=== PATIENT | female | born 1950 | race Caucasian/White ===

== ENCOUNTER 2023-10-23 14:06 | Outpatient (RCR) | payer MEDICARE, OTHER, SELFPAY | END 2023-10-23 23:59 | disposition home or self-care (01) | LOC: RPT 14:06 | PROVIDERS: ATTENDING PHYSICIAN Psychiatry & Neurology Neurology; FAMILY PHYSICIAN Internal Medicine | DX: G62.0 Drug-induced polyneuropathy (principal); Z73.6 Limitation of activities due to disability; R26.9 Unspecified abnormalities of gait and mobility | CPT/HCPCS: 97112; 97116; 97162; 97530 ==

== ENCOUNTER 2023-11-21 10:14 | Outpatient (RCR) | payer MEDICARE, OTHER, SELFPAY | END 2023-11-21 23:59 | disposition home or self-care (01) | LOC: RPT 10:14 | PROVIDERS: ATTENDING PHYSICIAN Psychiatry & Neurology Neurology; FAMILY PHYSICIAN Internal Medicine | DX: G62.0 Drug-induced polyneuropathy (principal); R26.9 Unspecified abnormalities of gait and mobility; Z73.6 Limitation of activities due to disability | CPT/HCPCS: 97112 ==

== ENCOUNTER → 2023-12-15 08:49 | Outpatient (REF) | payer MEDICARE, OTHER, SELFPAY | LOC: WDC 08:49 | PROVIDERS: ATTENDING PHYSICIAN Internal Medicine Hematology & Oncology; FAMILY PHYSICIAN Internal Medicine | DX: Z12.31 Encounter for screening mammogram for malignant neoplasm of breast (principal); C50.912 Malignant neoplasm of unspecified site of left female breast | CPT/HCPCS: 77063; 77067 ==

== ENCOUNTER 2023-12-18 13:59 | Outpatient (RCR) | payer MEDICARE, OTHER, SELFPAY | END 2023-12-18 15:09 | disposition home or self-care (01) | LOC: RPT 13:59 | PROVIDERS: ATTENDING PHYSICIAN Psychiatry & Neurology Neurology; FAMILY PHYSICIAN Internal Medicine | DX: G62.0 Drug-induced polyneuropathy (principal); Z73.6 Limitation of activities due to disability; R26.9 Unspecified abnormalities of gait and mobility; M62.81 Muscle weakness (generalized); R29.6 Repeated falls | CPT/HCPCS: 97112; 97116 ==

== ENCOUNTER 2024-02-20 13:51 | Emergency (ER) | payer MEDICARE, OTHER, SELFPAY ==
[2024-02-20 14:05] VITALS: BP 128/79
[2024-02-20 14:43] LABS: % Basophils 0.9 % (0-2); % Eosinophils 1.2 % (0-6); % Immature Granulocytes 0.5 % (0-0.5); % Lymphocytes 21.5 % (20.5-51.1); % Monocytes 6.6 % (1.7-9.3); % Neutrophils 69.3 % (42.2-75.2); Absolute Basophils 0.1 10^3/uL (0-0.2); Absolute Eosinophils 0.1 10^3/uL (0-0.7); Absolute Lymphocytes 1.4 10^3/uL (1.2-3.4); Absolute Monocytes 0.4 10^3/uL (0.1-0.6); Absolute Neutrophils 4.5 10^3/uL (1.4-6.5); Hematocrit 41.8 % (37.0-47.0); Hemoglobin 14.8 g/dL (12.0-16.0); Mean Corp Hgb Conc. 35.4 g/dL (33.0-37.0); Mean Corpuscular Hgb 31.2 pg (27.0-31.0); Mean Platelet Volume 9.5 fL (7.4-10.4); Nucleated Red Blood Cells % 0 %; Platelet Count 229 10^3/uL (130-400); Red Blood Cell Count 4.75 10^6/uL (4.20-5.40); Red Cell Dist. Width 12.3 % (11.5-14.5); White Blood Cell Count 6.5 10^3/uL (4.8-10.8)
[2024-02-20 14:56] LABS: ALT (SGPT) 20 U/L (0-35); AST (SGOT) 26 U/L (14-36); Albumin 4.2 g/dl (3.5-5.0); Alkaline Phosphatase 76 U/L (38-126); Blood Urea Nitrogen 17 mg/dl (7-17); Calcium 9.4 mg/dl (8.4-10.2); Carbon Dioxide 28 mmol/L (22-30); Chloride 102 mmol/L (98-107); Glucose 145 mg/dl (70-99); Potassium 4.4 mmol/L (3.5-5.1); Sodium 137 mmol/L (135-145); Total Bilirubin 0.4 mg/dl (0.2-1.3); Total Protein 6.5 g/dl (6.3-8.2); eGFR > 60.00
[2024-02-20 15:05] LABS: Troponin I < 0.012 ng/ml
[2024-02-20 16:27] VITALS: BP 143/75
[2024-02-20 17:00] VITALS: BP 107/54
[2024-02-20 18:00] VITALS: BP 105/59
--- NOTE | 2024-02-20 18:02 | ED.GENMED ---
History of Present Illness
General
Chief Complaint: Fall
Source: patient
Exam Limitations: none
Time Seen by Provider: 02/20/24 16:18
Travel History
Have you had any contact with someone who has COVID-19?: No
Do you have any symptoms of coronavirus? Fever > 100 degrees, chills, cough, shortness of breath, sore throat, loss of taste or smell, muscle aches, or headache?: No
History of Present Illness
History of Present Illness:
73-year-old female presents after a fall. She states she was dizzy before she fell. She has been dizzy for quite some time and has been seeing neurology for this. The dizziness may be from her carbamazepine she is taking for her neuralgia in her
face. The dizziness is not new. She fell and hit the back of her head as well as the right ribs right hand and lower back. She is not anticoagulated. She denies chest pain. No abdominal pain. No other complaints at this time
Past History
Past History
ED Past Medical History: Cancer (Breast), Fibromyalgia, GERD and Other (Neuropathy, fibromyalgia)
ED Past Surgical History: Appendectomy, Gynecological and Other (Keratoma removal appendix removal hysterectomy )
Social History
Tobacco: Non-smoker
Alcohol: None
Drug: None
Personal:
Living: with family
Employment: Employed
Family History
Family History: Hypertension
Phy Exam
Physical Exam
Physical Exam:
General: Well-appearing female no acute respiratory distress
HEENT: Normocephalic pupils equal round reactive to light no scalp abrasion or hematoma
Heart: Regular rate and rhythm no murmurs
Lungs: Clear no wheeze or rales
Extremities: No cyanosis
musculoskeletal exam: Spine is mildly tender of the lumbar spine. She is tender over the right hand with overlying ecchymosis. No deformities.
Extremities: No cyanosis
Course
Orders/Labs/Results
Orders:
Orders
02/20/24 14:07
Electrocardiogram (*1) Urgent
Reason for Study: Shortness of Breath
EKG- Treatment ONCE
02/20/24 14:08
CT Head W/o Iv Contrast Urgent
Comment:
Reason For Exam: head injury, dizziness
02/20/24 14:13
Complete Blood Count/With Diff Urgent
Comprehensive Metabolic Panel Urgent
Troponin I Urgent
02/20/24 16:45
CR Hand - Right Min 3 Views Urgent
Comment:
Reason For Exam: fall
CR Lumbar Spine 2 Or 3 Views Urgent
Comment:
Reason For Exam: fall
CR Ribs-right 3 Vw W/pa Chest* Urgent
Comment:
Reason For Exam: fall
Abnormal Lab Results
02/20/24
14:13
MCH 31.2 H pg
(27.0-31.0)
Glucose 145 H mg/dl
(70-99)
02/20/24 14:13
02/20/24 14:13
Vital Signs
Initial and Last Documented VS:
Initial Vital Signs
Pulse Resp BP Pulse Ox
118 19 128/79 98
02/20/24 14:05 02/20/24 14:05 02/20/24 14:05 02/20/24 14:05
Last Documented Vital Signs
Pulse Resp BP Pulse Ox
88 14 105/59 98
02/20/24 18:30 02/20/24 18:30 02/20/24 18:00 02/20/24 18:30
MDM/Problems Addressed
Differential Diagnosis Includes:
Fall. Head injury. Labs reviewed through triage which are without significant finding. She has been seeing neurology for dizziness which is thought to be related to her carbamazepine. Her dizziness is not new.
*Critical Care Note
Total Time (30-74mins, 75-104mins- exclusive of procedures): Not Applicable
Update Note
Update Note:
CT of the head negative. X-ray right hand right ribs and lumbar spine all negative for acute fractures. Patient reassured. She has been ambulatory here without any difficulty. She is taken herself to the bathroom several times.
ED Attending Note
-
Portions of this chart may have been created with voice recognition software.� Occasional wrong word or��sound alike� substitutions may have occurred due to the inherent limitations of voice recognition software.
Discharge Plan
Departure
Patient Disposition: Home (Routine Discharge)
Date of Disposition: 02/20/24
Time of Disposition: 18:54
Patient with high blood pressure during this ER visit?: No
Discharge Problem:
Fall
Instructions: Preventing falls in adults
Prescriptions:
No Action
gabapentin 300 MG capsule
300 mg PO QID
zolpidem 5 MG tablet
5 mg PO HS PRN (Reason: insomnia)
duloxetine 30 MG capsule,delayed release(DR/EC)
60 mg PO DAILY
alpha lipoic acid 300 MG capsule
300 mg PO BID
valacyclovir 1,000 MG tablet
1,000 mg PO TID Qty: 42 0RF
prednisone 20 MG tablet
20 mg PO BID Qty: 14 0RF
oxycodone 5 MG tablet
5 mg PO Q4HPRN PRN (Reason: pain) Qty: 20 0RF
Referrals:
Oly Batres MD [Family Provider] -
Activity Restrictions/Additional Instructions:
Rest. Use Tylenol as needed for pain peer return if worse otherwise follow-up with family doctor and your neurologist as discussed
Interventions
Interventions:
*Risk Screen - Suicide Last Done: 02/20/24 18:06
*General Assessment Last Done: 02/20/24 18:06
*Neglect/Abuse Screening Last Done: 02/20/24 18:06
ED- Fall Risk Assessment Last Done: 02/20/24 18:06
*ED COVID-19 Vaccine History Last Done: 02/20/24 18:06
ED-Musculoskeletal Assessment Last Done: 02/20/24 16:32
ED- Neurological Assessment Last Done: 02/20/24 16:32
ED-Skin Assessment Last Done: 02/20/24 16:32
Discharge Date and Time
Print Language: KYRGYZ
[2024-02-20 19:18] VITALS: BP 127/51
== END 2024-02-20 19:20 | disposition home or self-care (01) ==
LOC: EMR 13:51
PROVIDERS: Emergency Medicine; EMERGENCY PHYSICIAN Emergency Medicine; FAMILY PHYSICIAN Internal Medicine
DX: R42 Dizziness and giddiness (principal); S60.221A Contusion of right hand, initial encounter; S09.90XA Unspecified injury of head, initial encounter; S29.9XXA Unspecified injury of thorax, initial encounter; M54.50 Low back pain, unspecified; W19.XXXA Unspecified fall, initial encounter; G58.8 Other specified mononeuropathies; M79.7 Fibromyalgia; K21.9 Gastro-esophageal reflux disease without esophagitis; Z91.040 Latex allergy status; Z91.048 Other nonmedicinal substance allergy status
CPT/HCPCS: 99284; 70450; 71101; 72100; 73130; 80053; 84484; 85025; 93005

== ENCOUNTER → 2024-05-03 07:33 | Outpatient (REF) | payer MEDICARE, OTHER, SELFPAY ==
[2024-05-03 08:43] LABS: % Basophils 0.8 % (0-2); % Eosinophils 2.5 % (0-6); % Immature Granulocytes 0.4 % (0-0.5); % Lymphocytes 19.9 % (20.5-51.1); % Monocytes 7.5 % (1.7-9.3); % Neutrophils 68.9 % (42.2-75.2); Absolute Eosinophils 0.1 10^3/uL (0-0.7); Absolute Monocytes 0.4 10^3/uL (0.1-0.6); Absolute Neutrophils 3.6 10^3/uL (1.4-6.5); Hematocrit 44.1 % (37.0-47.0); Hemoglobin 15.4 g/dL (12.0-16.0); Mean Corp Hgb Conc. 34.9 g/dL (33.0-37.0); Mean Corpuscular Hgb 32.3 pg (27.0-31.0); Mean Corpuscular Volume 92.5 fL (81.0-99.0); Mean Platelet Volume 9.4 fL (7.4-10.4); Nucleated Red Blood Cells % 0 %; Platelet Count 225 10^3/uL (130-400); Red Blood Cell Count 4.77 10^6/uL (4.20-5.40); Red Cell Dist. Width 12.6 % (11.5-14.5); White Blood Cell Count 5.2 10^3/uL (4.8-10.8)
[2024-05-03 09:16] LABS: ALT (SGPT) 17 U/L (0-35); AST (SGOT) 25 U/L (14-36); Albumin 4.1 g/dl (3.5-5.0); Alkaline Phosphatase 68 U/L (38-126); Blood Urea Nitrogen 19 mg/dl (7-17); Calcium 9.4 mg/dl (8.4-10.2); Carbon Dioxide 31 mmol/L (22-30); Chloride 103 mmol/L (98-107); Glucose 96 mg/dl (70-99); Potassium 4.5 mmol/L (3.5-5.1); Sodium 138 mmol/L (135-145); Total Bilirubin 0.6 mg/dl (0.2-1.3); Total Cholesterol 274 mg/dl (50-199); Total Protein 6.2 g/dl (6.3-8.2); Triglyceride 67 mg/dl (10-149); Very Low Density Lipoprotein 13 mg/dl (0-30); eGFR > 60.00
[2024-05-03 09:26] LABS: HDL Cholesterol 132 mg/dl; LDL Cholesterol, Calculated 129 mg/dl
[2024-05-03 09:38] LABS: TSH 3.54 uIU/ml (0.47-4.68)
[2024-05-03 09:57] LABS: Vitamin B12 335 pg/ml (239-931)
== END ==
LOC: REG 07:33
PROVIDERS: ATTENDING PHYSICIAN Nurse Practitioner Family; FAMILY PHYSICIAN Internal Medicine
DX: E53.8 Deficiency of other specified B group vitamins (principal); G50.0 Trigeminal neuralgia; C50.212 Malignant neoplasm of upper-inner quadrant of left female breast; R53.83 Other fatigue; R63.4 Abnormal weight loss; E78.5 Hyperlipidemia, unspecified; Z00.00 Encounter for general adult medical examination without abnormal findings
CPT/HCPCS: 36415; 80053; 80061; 82607; 84443; 85025

== ENCOUNTER → 2024-05-09 06:42 | Day surgery (SDC) | payer MEDICARE, OTHER, SELFPAY | LOC: GI 06:42 | PROVIDERS: ATTENDING PHYSICIAN Internal Medicine Gastroenterology; FAMILY PHYSICIAN Internal Medicine | DX: Z12.11 Encounter for screening for malignant neoplasm of colon (principal); K57.30 Diverticulosis of large intestine without perforation or abscess without bleeding; K62.1 Rectal polyp; D12.3 Benign neoplasm of transverse colon | CPT/HCPCS: 45385; 45380; 88305 ==

== ENCOUNTER → 2024-06-12 18:09 | Outpatient (REF) | payer MEDICARE, OTHER, SELFPAY ==
[2024-06-12 20:58] LABS: Urine Red Blood Cell 0-2 /HPF (0-2); Urine Squamous Cell 0-2 /LPF (Few); Urine White Cell 0-2 /HPF (0-5)
[2024-06-12 20:59] LABS: Urine Bacteria Few (Negative)
== END ==
LOC: CLAB 18:09
PROVIDERS: ATTENDING PHYSICIAN Urology
DX: N39.0 Urinary tract infection, site not specified (principal)
CPT/HCPCS: 81015; 87086

== ENCOUNTER 2024-07-24 13:43 | Outpatient (RCR) | payer MEDICARE, OTHER, SELFPAY | END 2024-07-24 23:59 | disposition home or self-care (01) | LOC: RPT 13:43 | PROVIDERS: ATTENDING PHYSICIAN Urology; FAMILY PHYSICIAN Internal Medicine | DX: N39.0 Urinary tract infection, site not specified (principal); N32.81 Overactive bladder; M62.89 Other specified disorders of muscle; N39.41 Urge incontinence; Z73.6 Limitation of activities due to disability; R26.81 Unsteadiness on feet; M62.81 Muscle weakness (generalized) | CPT/HCPCS: 97110; 97163; 97530 ==

== ENCOUNTER 2024-08-07 11:00 | Outpatient (RCR) | payer MEDICARE, OTHER, SELFPAY | END 2024-08-07 23:59 | disposition home or self-care (01) | LOC: RPT 11:00 | PROVIDERS: ATTENDING PHYSICIAN Urology; FAMILY PHYSICIAN Internal Medicine | DX: N32.81 Overactive bladder (principal); M62.89 Other specified disorders of muscle; Z73.6 Limitation of activities due to disability; M62.81 Muscle weakness (generalized); R26.81 Unsteadiness on feet; Z87.440 Personal history of urinary (tract) infections; Z85.3 Personal history of malignant neoplasm of breast | CPT/HCPCS: 97110; 97112; 97140; 97530 ==

== ENCOUNTER → 2024-08-29 11:21 | Outpatient (REF) | payer MEDICARE, OTHER, SELFPAY ==
[2024-08-29 12:28] LABS: % Basophils 0.6 % (0-2); % Immature Granulocytes 0.4 % (0-0.5); % Lymphocytes 16.1 % (20.5-51.1); % Monocytes 5.2 % (1.7-9.3); % Neutrophils 76.7 % (42.2-75.2); Absolute Eosinophils 0.1 10^3/uL (0-0.7); Absolute Lymphocytes 1.1 10^3/uL (1.2-3.4); Absolute Monocytes 0.4 10^3/uL (0.1-0.6); Absolute Neutrophils 5.2 10^3/uL (1.4-6.5); Hematocrit 45.3 % (37.0-47.0); Hemoglobin 15.4 g/dL (12.0-16.0); Mean Corpuscular Hgb 31.5 pg (27.0-31.0); Mean Corpuscular Volume 92.6 fL (81.0-99.0); Mean Platelet Volume 9.4 fL (7.4-10.4); Nucleated Red Blood Cells % 0 %; Platelet Count 235 10^3/uL (130-400); Red Blood Cell Count 4.89 10^6/uL (4.20-5.40); Red Cell Dist. Width 12.5 % (11.5-14.5); White Blood Cell Count 6.7 10^3/uL (4.8-10.8)
[2024-08-29 13:25] LABS: TSH 1.63 uIU/ml (0.47-4.68)
[2024-08-29 14:00] LABS: Vitamin B12 934 pg/ml (239-931)
[2024-08-29 16:23] LABS: ALT (SGPT) 19 U/L (0-35); AST (SGOT) 28 U/L (14-36); Albumin 4.6 g/dl (3.5-5.0); Alkaline Phosphatase 62 U/L (38-126); Blood Urea Nitrogen 21 mg/dl (7-17); Calcium 9.7 mg/dl (8.4-10.2); Carbon Dioxide 27 mmol/L (22-30); Chloride 100 mmol/L (98-107); Glucose 99 mg/dl (70-99); Potassium 4.8 mmol/L (3.5-5.1); Sodium 138 mmol/L (135-145); Total Bilirubin 0.4 mg/dl (0.2-1.3); eGFR > 60.00
== END ==
LOC: REG 11:21
PROVIDERS: ATTENDING PHYSICIAN Psychiatry & Neurology Neurology; FAMILY PHYSICIAN Internal Medicine
DX: G50.0 Trigeminal neuralgia (principal); I10 Essential (primary) hypertension; D52.9 Folate deficiency anemia, unspecified
CPT/HCPCS: 36415; 80053; 82607; 82746; 84443; 85025

== ENCOUNTER 2024-09-11 12:44 | Outpatient (RCR) | payer MEDICARE, OTHER, SELFPAY | END 2024-09-11 23:59 | disposition home or self-care (01) | LOC: RPT 12:44 | PROVIDERS: ATTENDING PHYSICIAN Urology; FAMILY PHYSICIAN Internal Medicine | DX: N32.81 Overactive bladder (principal); M62.89 Other specified disorders of muscle; Z73.6 Limitation of activities due to disability; M62.81 Muscle weakness (generalized); R26.81 Unsteadiness on feet; Z87.440 Personal history of urinary (tract) infections; Z85.3 Personal history of malignant neoplasm of breast | CPT/HCPCS: 97014; 97112; 97140; 97530 ==

== ENCOUNTER 2024-10-23 12:19 | Outpatient (RCR) | payer MEDICARE, OTHER, SELFPAY | END 2024-10-23 23:59 | disposition home or self-care (01) | LOC: RPT 12:19 | PROVIDERS: ATTENDING PHYSICIAN Urology; FAMILY PHYSICIAN Internal Medicine | DX: N32.81 Overactive bladder (principal); M62.89 Other specified disorders of muscle; N39.0 Urinary tract infection, site not specified; Z73.6 Limitation of activities due to disability; N39.41 Urge incontinence; M62.81 Muscle weakness (generalized); R26.81 Unsteadiness on feet; Z87.440 Personal history of urinary (tract) infections; Z85.3 Personal history of malignant neoplasm of breast | CPT/HCPCS: 97014; 97112; 97140; 97530 ==

== ENCOUNTER 2024-11-20 12:43 | Outpatient (RCR) | payer MEDICARE, OTHER, SELFPAY | END 2024-11-20 23:59 | disposition home or self-care (01) | LOC: RPT 12:43 | PROVIDERS: ATTENDING PHYSICIAN Urology; FAMILY PHYSICIAN Internal Medicine | DX: N32.81 Overactive bladder (principal); M62.89 Other specified disorders of muscle; N39.0 Urinary tract infection, site not specified; N39.41 Urge incontinence; Z73.6 Limitation of activities due to disability; M62.81 Muscle weakness (generalized); R26.81 Unsteadiness on feet; Z87.440 Personal history of urinary (tract) infections; R53.83 Other fatigue; Z85.3 Personal history of malignant neoplasm of breast | CPT/HCPCS: 97014; 97110; 97112; 97140; 97530 ==

== ENCOUNTER → 2024-12-17 17:34 | Outpatient (REF) | payer MEDICARE, OTHER, SELFPAY | LOC: WDC 17:34 | PROVIDERS: ATTENDING PHYSICIAN Internal Medicine Hematology & Oncology; FAMILY PHYSICIAN Internal Medicine | DX: Z12.31 Encounter for screening mammogram for malignant neoplasm of breast (principal) | CPT/HCPCS: 77063; 77067 ==

== ENCOUNTER 2024-12-18 12:58 | Outpatient (RCR) | payer MEDICARE, OTHER, SELFPAY | END 2024-12-18 23:59 | disposition home or self-care (01) | LOC: RPT 12:58 | PROVIDERS: ATTENDING PHYSICIAN Urology; FAMILY PHYSICIAN Internal Medicine | DX: N32.81 Overactive bladder (principal); M62.89 Other specified disorders of muscle; N39.0 Urinary tract infection, site not specified; N39.41 Urge incontinence; Z73.6 Limitation of activities due to disability; M62.81 Muscle weakness (generalized); R26.81 Unsteadiness on feet; Z87.440 Personal history of urinary (tract) infections; Z85.3 Personal history of malignant neoplasm of breast; R53.83 Other fatigue | CPT/HCPCS: 97014; 97110; 97112; 97530 ==

== ENCOUNTER 2025-01-01 13:30 | Outpatient (RCR) | payer MEDICARE, OTHER, SELFPAY | END 2025-01-02 07:21 | disposition home or self-care (01) | LOC: RPT 13:30 | PROVIDERS: ATTENDING PHYSICIAN Urology; FAMILY PHYSICIAN Internal Medicine | DX: N32.81 Overactive bladder (principal); M62.89 Other specified disorders of muscle; N39.0 Urinary tract infection, site not specified; N39.41 Urge incontinence; Z73.6 Limitation of activities due to disability; M62.81 Muscle weakness (generalized); R26.81 Unsteadiness on feet; Z87.440 Personal history of urinary (tract) infections; Z85.3 Personal history of malignant neoplasm of breast; R53.83 Other fatigue | CPT/HCPCS: 97140; 97530 ==

== ENCOUNTER → 2025-01-06 09:45 | Outpatient (REF) | payer MEDICARE, OTHER, SELFPAY ==
[2025-01-06 10:51] LABS: % Basophils 0.7 % (0-2); % Lymphocytes 16.6 % (20.5-51.1); % Monocytes 6.1 % (1.7-9.3); % Neutrophils 73.6 % (42.2-75.2); Absolute Eosinophils 0.1 10^3/uL (0-0.7); Absolute Immature Granulocytes 0.1 10^3/uL (0-0.05); Absolute Monocytes 0.4 10^3/uL (0.1-0.6); Absolute Neutrophils 4.4 10^3/uL (1.4-6.5); Hematocrit 44.4 % (37.0-47.0); Hemoglobin 15.5 g/dL (12.0-16.0); Mean Corp Hgb Conc. 34.9 g/dL (33.0-37.0); Mean Corpuscular Hgb 31.4 pg (27.0-31.0); Mean Corpuscular Volume 90.1 fL (81.0-99.0); Mean Platelet Volume 9.3 fL (7.4-10.4); Nucleated Red Blood Cells % 0 %; Platelet Count 246 10^3/uL (130-400); Red Blood Cell Count 4.93 10^6/uL (4.20-5.40); Red Cell Dist. Width 12.5 % (11.5-14.5)
[2025-01-06 14:54] LABS: ALT (SGPT) 21 U/L (0-35); AST (SGOT) 27 U/L (14-36); Albumin 4.5 g/dl (3.5-5.0); Alkaline Phosphatase 76 U/L (38-126); Blood Urea Nitrogen 14 mg/dl (7-17); Calcium 9.2 mg/dl (8.4-10.2); Carbon Dioxide 28 mmol/L (22-30); Chloride 101 mmol/L (98-107); Glucose 109 mg/dl (70-99); Potassium 5.1 mmol/L (3.5-5.1); Sodium 138 mmol/L (135-145); Total Bilirubin 0.6 mg/dl (0.2-1.3); Total Cholesterol 229 mg/dl (50-199); Total Protein 6.7 g/dl (6.3-8.2); Triglyceride 62 mg/dl (10-149); Very Low Density Lipoprotein 12 mg/dl (0-30); eGFR > 60.00
[2025-01-06 15:48] LABS: HDL Cholesterol 131 mg/dl; LDL Cholesterol, Calculated 86 mg/dl
== END ==
LOC: REG 09:45
PROVIDERS: ATTENDING PHYSICIAN Nurse Practitioner Family; FAMILY PHYSICIAN Internal Medicine
DX: E78.5 Hyperlipidemia, unspecified (principal); G50.0 Trigeminal neuralgia; I63.81 Other cerebral infarction due to occlusion or stenosis of small artery
CPT/HCPCS: 36415; 80053; 80061; 85025

== ENCOUNTER → 2025-01-07 15:34 | Outpatient (REF) | payer MEDICARE, OTHER, SELFPAY | LOC: RAD 15:34 | PROVIDERS: ATTENDING PHYSICIAN Internal Medicine | DX: I63.81 Other cerebral infarction due to occlusion or stenosis of small artery (principal) | CPT/HCPCS: 93880 ==

== ENCOUNTER 2025-01-21 06:12 | Outpatient (RCR) | payer MEDICARE, OTHER, SELFPAY | END 2025-01-21 23:59 | disposition home or self-care (01) | LOC: ROT 06:12 | PROVIDERS: ATTENDING PHYSICIAN Nurse Practitioner Family; FAMILY PHYSICIAN Internal Medicine | DX: R26.89 Other abnormalities of gait and mobility (principal); R42 Dizziness and giddiness; Z73.6 Limitation of activities due to disability; R41.844 Frontal lobe and executive function deficit; R41.842 Visuospatial deficit; M62.81 Muscle weakness (generalized); G62.0 Drug-induced polyneuropathy; Z86.73 Personal history of transient ischemic attack (TIA), and cerebral infarction without residual deficits; Z85.3 Personal history of malignant neoplasm of breast; Z91.81 History of falling; R29.6 Repeated falls | CPT/HCPCS: 96125; 97163; 97167; 97530; 97535 ==

== ENCOUNTER → 2025-02-20 12:59 | Outpatient (REF) | payer MEDICARE, OTHER, SELFPAY | LOC: PAVMRI 12:59 | PROVIDERS: ATTENDING PHYSICIAN Nurse Practitioner Family; FAMILY PHYSICIAN Internal Medicine | DX: R26.89 Other abnormalities of gait and mobility (principal); M62.81 Muscle weakness (generalized); C50.212 Malignant neoplasm of upper-inner quadrant of left female breast; Z17.0 Estrogen receptor positive status [ER+] | CPT/HCPCS: 70553; A9575 ==

== ENCOUNTER 2025-02-21 08:02 | Outpatient (RCR) | payer MEDICARE, OTHER, SELFPAY | END 2025-02-21 23:59 | disposition home or self-care (01) | LOC: ROT 08:02 | PROVIDERS: ATTENDING PHYSICIAN Nurse Practitioner Family; FAMILY PHYSICIAN Internal Medicine | DX: R26.89 Other abnormalities of gait and mobility (principal); R29.6 Repeated falls; Z73.6 Limitation of activities due to disability; R42 Dizziness and giddiness; R53.0 Neoplastic (malignant) related fatigue; G62.0 Drug-induced polyneuropathy; T45.1X5D Adverse effect of antineoplastic and immunosuppressive drugs, subsequent encounter; R29.3 Abnormal posture; M62.81 Muscle weakness (generalized); G31.84 Mild cognitive impairment of uncertain or unknown etiology; R41.840 Attention and concentration deficit; R41.841 Cognitive communication deficit; Z86.73 Personal history of transient ischemic attack (TIA), and cerebral infarction without residual deficits | CPT/HCPCS: 97110; 97112; 97116; 97129; 97130; 97530; 97535 ==

== ENCOUNTER 2025-03-10 09:01 | Emergency (ER) | payer MEDICARE, OTHER, SELFPAY ==
[2025-03-10 09:02] VITALS: BP 150/84
--- NOTE | 2025-03-10 09:19 | ED.GENMED ---
History of Present Illness
General
Chief Complaint: Back Pain
Source: patient
Exam Limitations: none
Time Seen by Provider: 03/10/25 09:18
Nursing documentation reviewed up to this point in time: agreed with
History of Present Illness
History of Present Illness:
74 yo female w h/o sciatica, neuropathy, GERD breast CA w lumpectomy, hysterectomy, appendectomy presents for 9/10 mid upper back pain after fall 7:30 a.m. getting out of shower, struck back of head on shower wall, fell 1/[address] out of shower
striking mid back on the metal strip where the shower door slides. Denies LOC, neck pain. Head hurts where it hit, no significant headache.
Past History
Past History
ED Past Medical History: Cancer (Breast), CVA, Fibromyalgia, GERD, Other (Neuropathy, fibromyalgia, balance problems, trigeminal neuralgia) and Other
ED Past Surgical History: Appendectomy, Gynecological and Other (Keratoma removal appendix removal hysterectomy )
Social History
Tobacco: Non-smoker
Alcohol: Occasional
Drug: None
Personal:
Living: alone
Employment: Retired
Family History
Family History: Hypertension
Review of Systems
Review of Systems
Allergies reviewed?: Yes
All Other Systems: ROS reviewed and negative except as documented in HPI and ROS
Respiratory: Denies trouble breathing
Cardiac: Denies chest pain or syncope
ABD/GI: Denies abdominal pain, nausea or vomiting
: Denies incontinence
Musculoskeletal: Reports back pain; Denies neck pain
Skin: Reports no symptoms
Neurological: Reports no symptoms
Phy Exam
Physical Exam
Physical Exam:
GENERAL: No acute distress. A&Ox3.
CONSTITUTIONAL: Afebrile.
Head: NC/AT
EYES: clear, conjunctivae normal
ENMT: moist mucus membranes, Pharynx nl
RESPIRATORY: Regular respirations, nonlabored, lungs clear.
CARDIOVASCULAR: Regular rate and rhythm, no murmurs, no rubs.
GI: Soft, nontender, normal BS
MUSCULOSKELETAL: Tender, mildly erythematous and mildly swollen min back at bra line. Moves slowly due to back pain but steady ambulation. Well perfused.
SKIN: Warm, dry, pink
PSYCH: Normal mood and affect. Well kept, interactive and appropriate
NEUROLOGIC: Awake, alert and oriented. No focal neurological deficits
Course
Orders/Labs/Results
Orders:
Orders
03/10/25 09:28
Ibuprofen [Motrin] 600 mg PO NOW STA
CR Thoracic Spine 3 Views Urgent
Reason For Exam: direct impact mid T spine on metal strip of shower
Vital Signs
Initial and Last Documented VS:
Initial Vital Signs
Temp Pulse Resp BP Pulse Ox
98.5 F 128 18 150/84 100
03/10/25 09:02 03/10/25 09:02 03/10/25 09:02 03/10/25 09:02 03/10/25 09:02
Last Documented Vital Signs
Temp Pulse Resp BP Pulse Ox
98.5 F 128 18 150/84 100
03/10/25 09:02 03/10/25 09:02 03/10/25 09:02 03/10/25 09:02 03/10/25 09:02
MDM/Problems Addressed
Differential Diagnosis Includes:
contusion back, fracture T spine, concussion,
MDM/Problems Addressed:
74 yo female w h/o sciatica, neuropathy, GERD breast CA w lumpectomy, hysterectomy, appendectomy presents for 9/10 mid upper back pain after fall 7:30 a.m. getting out of shower, struck back of head on shower wall, fell 1/[address] out of shower
striking mid back on the metal strip where the shower door slides. Denies LOC, neck pain. Head hurts where it hit, no significant headache.
Thoracic spine x-ray radiology report read: No acute fracture or malalignment identified.
Patient informed and is much relieved, she states she is feeling somewhat better after the ibuprofen. She is out of bed and moving around well
No sign of concussion or significant head injury
HR 90, Pulse ox 98% RA at discharge
Pt ambulated out with normal gait at discharge
Very appreciative of the care
*Critical Care Note
Total Time (30-74mins, 75-104mins- exclusive of procedures): Not Applicable
ED Attending Note
-
Portions of this chart may have been created with voice recognition software.� Occasional wrong word or��sound alike� substitutions may have occurred due to the inherent limitations of voice recognition software.
Discharge Plan
Departure
Patient Disposition: Home (Routine Discharge)
Date of Disposition: 03/10/25
Time of Disposition: 10:48
Patient with high blood pressure during this ER visit?: No
Condition: Good
Discharge Problem:
Fall from slip, trip, or stumble, Minor head injury without loss of consciousness, Contusion of thoracic spine
Instructions: Head injury in adults, Contusion
Prescriptions:
No Action
gabapentin 300 MG capsule
300 mg PO QID
zolpidem 5 MG tablet
5 mg PO HS PRN (Reason: insomnia)
duloxetine 30 MG capsule,delayed release(DR/EC)
60 mg PO DAILY
alpha lipoic acid 300 MG capsule
300 mg PO BID
valacyclovir 1,000 MG tablet
1,000 mg PO TID Qty: 42 0RF
prednisone 20 MG tablet
20 mg PO BID Qty: 14 0RF
oxycodone 5 MG tablet
5 mg PO Q4HPRN PRN (Reason: pain) Qty: 20 0RF
Referrals:
Oly Batres MD [Family Provider, Internal Medicine] - As needed
Activity Restrictions/Additional Instructions:
As we discussed, your x-ray shows no fractures.
Ibuprofen 600 mg, with food, every 6 hours as needed for pain.
You may alternate heating pad with cold compresses for 20 minutes and stick with whichever feels better.
Interventions
Interventions:
*Risk Screen - Suicide Last Done: 03/10/25 09:02
*General Assessment Last Done: 03/10/25 09:02
*Neglect/Abuse Screening Last Done: 03/10/25 09:02
*Nursing Disposition Last Done: 03/10/25 11:10
ED-Musculoskeletal Assessment Last Done: 03/10/25 10:02
Discharge Date and Time
Discharge Date/Time: 03/10/25 11:10
Print Language: FRISIAN
[2025-03-10] MEDS: MOTRIN 600 MG PO (09:39)
== END 2025-03-10 11:10 | disposition home or self-care (01) ==
LOC: EMR 09:01
PROVIDERS: EMERGENCY PHYSICIAN Emergency Medicine; FAMILY PHYSICIAN Internal Medicine
DX: S20.224A Contusion of middle back wall of thorax, initial encounter (principal); S09.90XA Unspecified injury of head, initial encounter; W01.0XXA Fall on same level from slipping, tripping and stumbling without subsequent striking against object, initial encounter; M79.7 Fibromyalgia; Z85.3 Personal history of malignant neoplasm of breast; Z86.73 Personal history of transient ischemic attack (TIA), and cerebral infarction without residual deficits; Z90.49 Acquired absence of other specified parts of digestive tract; Z90.710 Acquired absence of both cervix and uterus
CPT/HCPCS: 99283; 72072

== ENCOUNTER 2025-03-17 09:34 | Outpatient (RCR) | payer MEDICARE, OTHER, SELFPAY | END 2025-03-17 23:59 | disposition home or self-care (01) | LOC: ROT 09:34 | PROVIDERS: ATTENDING PHYSICIAN Nurse Practitioner Family; FAMILY PHYSICIAN Internal Medicine | DX: R42 Dizziness and giddiness; Z73.6 Limitation of activities due to disability; R53.0 Neoplastic (malignant) related fatigue; G62.0 Drug-induced polyneuropathy; R26.89 Other abnormalities of gait and mobility; T45.1X5D Adverse effect of antineoplastic and immunosuppressive drugs, subsequent encounter; M62.81 Muscle weakness (generalized); R29.3 Abnormal posture; G31.84 Mild cognitive impairment of uncertain or unknown etiology; R41.840 Attention and concentration deficit; R41.841 Cognitive communication deficit; Z86.73 Personal history of transient ischemic attack (TIA), and cerebral infarction without residual deficits; R29.6 Repeated falls | CPT/HCPCS: 97010; 97110; 97112; 97116; 97129; 97130; 97140; 97530; 97535 ==

== ENCOUNTER → 2025-04-10 11:23 | Outpatient (REF) | payer MEDICARE, OTHER, SELFPAY ==
[2025-04-10 14:43] LABS: Folate 7.7 ng/ml (2.76-20); Vitamin B12 901 pg/ml (239-931)
[2025-04-11 08:16] LABS: CRP, Ultra Sensitive 1.77 mg/L (0.30-5.00)
[2025-04-14 07:59] LABS: SSA 52 (Ro)(ENA) Ab, IgG 4 AU/mL (0-40); SSA 60 (Ro)(ENA) Ab, IgG 0 AU/mL (0-40); SSB (La)(ENA) Ab, IgG 0 AU/mL (0-40)
[2025-04-14 08:00] LABS: Gamma-Tocopherol 3.2 mg/L (0.0-6.0); Vitamin B1, Whole Blood 153 nmol/L (70-180)
== END ==
LOC: REG 11:23
PROVIDERS: ATTENDING PHYSICIAN Psychiatry & Neurology Neurology; FAMILY PHYSICIAN Internal Medicine
DX: R29.6 Repeated falls (principal); R41.89 Other symptoms and signs involving cognitive functions and awareness; R26.89 Other abnormalities of gait and mobility; R26.9 Unspecified abnormalities of gait and mobility; G50.0 Trigeminal neuralgia
CPT/HCPCS: 36415; 80171; 80183; 82085; 82164; 82550; 82607; 82746; 84155; 84165; 84425; 84446; 85652; 86141; 86235; 86618

== ENCOUNTER 2025-04-24 14:16 | Outpatient (RCR) | payer MEDICARE, OTHER, SELFPAY | END 2025-04-24 23:59 | disposition home or self-care (01) | LOC: ROT 14:16 | PROVIDERS: ATTENDING PHYSICIAN Nurse Practitioner Family; FAMILY PHYSICIAN Internal Medicine | DX: R42 Dizziness and giddiness (principal); Z73.6 Limitation of activities due to disability; R53.0 Neoplastic (malignant) related fatigue; T45.1X5D Adverse effect of antineoplastic and immunosuppressive drugs, subsequent encounter; R26.89 Other abnormalities of gait and mobility; R29.3 Abnormal posture; M62.81 Muscle weakness (generalized); R41.840 Attention and concentration deficit; R41.841 Cognitive communication deficit; Z86.73 Personal history of transient ischemic attack (TIA), and cerebral infarction without residual deficits; G62.0 Drug-induced polyneuropathy; G31.84 Mild cognitive impairment of uncertain or unknown etiology; R29.6 Repeated falls | CPT/HCPCS: 97110; 97112; 97116; 97129; 97130; 97164; 97530; 97535 ==

== ENCOUNTER → 2025-05-19 20:08 | Outpatient (REF) | payer MEDICARE, OTHER, SELFPAY | LOC: MRI 3T 20:08 | PROVIDERS: ATTENDING PHYSICIAN Psychiatry & Neurology Neurology; FAMILY PHYSICIAN Internal Medicine | DX: R29.6 Repeated falls (principal); R26.89 Other abnormalities of gait and mobility; R26.9 Unspecified abnormalities of gait and mobility | CPT/HCPCS: 72156; A9575 ==

== ENCOUNTER 2025-07-12 15:18 | Emergency (ER) | payer SELFPAY ==
[2025-07-12 15:19] VITALS: BP 141/87
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
[2025-07-12 16:37] VITALS: BMI 32.9
[2025-07-12 16:40] LABS: Hematocrit 40.9 % (37.0-47.0); Hemoglobin 14.3 g/dL (12.0-16.0); Mean Corp Hgb Conc. 35.0 g/dL (33.0-37.0); Mean Corpuscular Volume 88.7 fL (81.0-99.0); Nucleated Red Blood Cells % 0 %; Platelet Count 219 10^3/uL (130-400); Red Cell Dist. Width 12.4 % (11.5-14.5)
[2025-07-12] MEDS: MORPHINE SULFATE 2 MG IV (16:41)
[2025-07-12] MEDS: NSS 1000 IV (16:41)
[2025-07-12] MEDS: ADACEL 0.5 ML IM (16:42)
[2025-07-12 16:54] LABS: ALT (SGPT) 18 U/L (0-35); AST (SGOT) 23 U/L (14-36); Albumin 4.1 g/dl (3.5-5.0); Alkaline Phosphatase 66 U/L (38-126); Blood Urea Nitrogen 15 mg/dl (7-17); Calcium 9.2 mg/dl (8.4-10.2); Carbon Dioxide 28 mmol/L (22-30); Chloride 102 mmol/L (98-107); Estimated Creatinine Clearance 83 ml/min; Glucose 151 mg/dl (70-99); Potassium 3.8 mmol/L (3.5-5.1); Sodium 132 mmol/L (135-145); Total Protein 6.3 g/dl (6.3-8.2); eGFR > 60.00
== END 2025-07-12 20:02 | disposition home or self-care (01) ==
LOC: EMR 15:18
PROVIDERS: Nurse Practitioner; EMERGENCY PHYSICIAN Emergency Medicine; FAMILY PHYSICIAN Internal Medicine
DX: S80.212A Abrasion, left knee, initial encounter (principal); R07.89 Other chest pain; M54.2 Cervicalgia; M25.561 Pain in right knee; V43.53XA Car driver injured in collision with pick-up truck in traffic accident, initial encounter; M79.7 Fibromyalgia; Z86.73 Personal history of transient ischemic attack (TIA), and cerebral infarction without residual deficits; Z90.49 Acquired absence of other specified parts of digestive tract; Z23 Encounter for immunization
CPT/HCPCS: 99284; 96374; 96361; 90471; 70450; 71260; 72125; 73564; 74177; 80053; 85025; 90715; 93005; Q9967